=== PATIENT | female | born 1985 | race Caucasian/White ===

== ENCOUNTER 2021-10-16 07:44 | Inpatient (IN) ==
[2021-10-16] MEDS ORDERED: Magnesium Hydroxide LIQ 30 ML UDC PO PRN (12:57)
[2021-10-16] MEDS ORDERED: Senna TAB 8.6 mg TAB PO PRN (12:57)
[2021-10-17] MEDS: Enoxaparin 40 MG/0.4 ML SYR SUBCUT SCH (05:47)
[2021-10-17 07:16] LABS: ABS Eosinophils 0.1 10^3/ul (0-0.6); ABS Lymphocytes 1.6 10^3/ul (1.0-4.8); ABS Monocytes 0.4 10^3/ul (0-0.8); ABS Neutrophils 3.7 10^3/ul (1.5-7.7); Eosinophil % 1.6 %; Hematocrit 30 % (35-47); Hemoglobin 10.3 g/dL (12.0-16.0); Lymphocyte % 26.9 %; Mean Corpuscular HGB Conc 34 g/dL (31-36); Mean Corpuscular Hemoglobin 31 pg (27-31); Mean Corpuscular Volume 90 fL (80-97); Mean Platelet Volume 10.7 fL (7.4-10.4); Platelet Count 357 10^3/uL (150-450); Red Blood Count 3.38 10^6 /uL (3.70-4.87); Red Cell Distribution Width 19 % (10-15); White Blood Count 5.8 10^3/uL (3.5-10.8)
[2021-10-17 07:32] LABS: Albumin 3.7 g/dL (3.2-5.2); Albumin/Globulin Ratio 0.8 (1-3); Calcium 9.7 mg/dL (8.6-10.3); Globulin 4.7 g/dL (2-4); Potassium 3.6 mmol/L (3.5-5.0); Total Bilirubin 0.6 mg/dL (0.2-1.0); Total Protein 8.4 g/dL (6.4-8.9)
[2021-10-17] MEDS: Vitamin THERAPEUTIC TAB PO SCH (08:05)
[2021-10-18] MEDS: Enoxaparin 40 MG/0.4 ML SYR SUBCUT SCH (05:49)
[2021-10-18] MEDS: Vitamin THERAPEUTIC TAB PO SCH ×2 (09:20→09:23)
[2021-10-18] MEDS: Lidocaine 4% GEL 10 GM TUBE TOPICAL SCH ×3 (11:57→20:27)
[2021-10-19] MEDS: Enoxaparin 40 MG/0.4 ML SYR SUBCUT SCH (04:12)
[2021-10-19] MEDS: Lidocaine 4% GEL 10 GM TUBE TOPICAL SCH ×3 (08:25→20:36)
[2021-10-19] MEDS: Vitamin THERAPEUTIC TAB PO SCH (08:29)
[2021-10-20] MEDS: Enoxaparin 40 MG/0.4 ML SYR SUBCUT SCH (05:36)
[2021-10-20] MEDS: Lidocaine 4% GEL 10 GM TUBE TOPICAL SCH (08:17)
[2021-10-20] MEDS: Vitamin THERAPEUTIC TAB PO SCH (09:28)
[2021-10-20] MEDS: Lidocaine 4% GEL 10 GM TUBE TOPICAL PRN ×2 (14:01→18:23)
[2021-10-21] MEDS: Enoxaparin 40 MG/0.4 ML SYR SUBCUT SCH (06:06)
[2021-10-21] MEDS: Lidocaine 4% GEL 10 GM TUBE TOPICAL PRN ×3 (07:07→21:34)
[2021-10-21] MEDS: Vitamin THERAPEUTIC TAB PO SCH ×2 (09:08→09:13)
[2021-10-22] MEDS: Enoxaparin 40 MG/0.4 ML SYR SUBCUT SCH (05:45)
[2021-10-22] MEDS: Lidocaine 4% GEL 10 GM TUBE TOPICAL PRN ×4 (07:36→20:57)
[2021-10-22] MEDS: MULTIVITAMIN PO SCH (11:03)
[2021-10-22] MEDS: [UNRECOGNIZED DRUG - OTHER] PO SCH (11:03)
[2021-10-23] MEDS: Lidocaine 4% GEL 10 GM TUBE TOPICAL PRN ×4 (02:32→18:02)
[2021-10-23] MEDS: Enoxaparin 40 MG/0.4 ML SYR SUBCUT SCH (05:26)
[2021-10-23] MEDS: [UNRECOGNIZED DRUG - OTHER] PO SCH (07:31)
[2021-10-23] MEDS: MULTIVITAMIN PO SCH (07:31)
[2021-10-23] MEDS: DULoxetine DR 30 mg CAP PO SCH (07:32)
[2021-10-24] MEDS: Enoxaparin 40 MG/0.4 ML SYR SUBCUT SCH (05:25)
[2021-10-24 06:20] LABS: ABS Basophils 0.1 10^3/ul (0-0.2); ABS Eosinophils 0.1 10^3/ul (0-0.6); ABS Lymphocytes 1.5 10^3/ul (1.0-4.8); ABS Monocytes 0.4 10^3/ul (0-0.8); ABS Neutrophils 3.1 10^3/ul (1.5-7.7); Eosinophil % 2.4 %; Hematocrit 30 % (35-47); Hemoglobin 10.2 g/dL (12.0-16.0); Lymphocyte % 28.4 %; Mean Corpuscular HGB Conc 33 g/dL (31-36); Mean Corpuscular Hemoglobin 31 pg (27-31); Mean Corpuscular Volume 91 fL (80-97); Mean Platelet Volume 9.8 fL (7.4-10.4); Platelet Count 305 10^3/uL (150-450); Red Blood Count 3.33 10^6 /uL (3.70-4.87); Red Cell Distribution Width 17 % (10-15); White Blood Count 5.2 10^3/uL (3.5-10.8)
[2021-10-24 06:50] LABS: Albumin 3.5 g/dL (3.2-5.2); Albumin/Globulin Ratio 0.9 (1-3); Calcium 9.4 mg/dL (8.6-10.3); Globulin 3.8 g/dL (2-4); Potassium 3.6 mmol/L (3.5-5.0); Total Bilirubin 0.5 mg/dL (0.2-1.0); Total Protein 7.3 g/dL (6.4-8.9); eGFR CKD-EPI 122.2 (>60)
[2021-10-24] MEDS: DULoxetine DR 30 mg CAP PO SCH (07:57)
[2021-10-24] MEDS: [UNRECOGNIZED DRUG - OTHER] PO SCH (08:00)
[2021-10-24] MEDS: MULTIVITAMIN PO SCH (08:00)
[2021-10-24] MEDS: Lidocaine 4% GEL 10 GM TUBE TOPICAL PRN ×2 (09:15→16:34)
[2021-10-25] MEDS: Enoxaparin 40 MG/0.4 ML SYR SUBCUT SCH (05:14)
[2021-10-25] MEDS: Lidocaine 4% GEL 10 GM TUBE TOPICAL PRN (05:14)
[2021-10-25] MEDS: [UNRECOGNIZED DRUG - OTHER] PO SCH (08:29)
[2021-10-25] MEDS: MULTIVITAMIN PO SCH (08:29)
[2021-10-25] MEDS: DULoxetine DR 30 mg CAP PO SCH (08:31)
[2021-10-26] MEDS: Lidocaine 4% GEL 10 GM TUBE TOPICAL PRN (02:49)
[2021-10-26] MEDS: Enoxaparin 40 MG/0.4 ML SYR SUBCUT SCH (05:38)
[2021-10-26] MEDS: [UNRECOGNIZED DRUG - OTHER] PO SCH (08:18)
[2021-10-26] MEDS: MULTIVITAMIN PO SCH (08:18)
[2021-10-26] MEDS: DULoxetine DR 30 mg CAP PO SCH (08:19)
[2021-10-27] MEDS: Lidocaine 4% GEL 10 GM TUBE TOPICAL PRN ×2 (02:16→12:48)
[2021-10-27] MEDS: Enoxaparin 40 MG/0.4 ML SYR SUBCUT SCH (05:58)
[2021-10-27] MEDS: MULTIVITAMIN PO SCH (09:24)
[2021-10-27] MEDS: [UNRECOGNIZED DRUG - OTHER] PO SCH (09:24)
[2021-10-27] MEDS: DULoxetine DR 30 mg CAP PO SCH (09:24)
[2021-10-28] MEDS: Lidocaine 4% GEL 10 GM TUBE TOPICAL PRN (03:36)
[2021-10-28] MEDS: Enoxaparin 40 MG/0.4 ML SYR SUBCUT SCH (06:11)
[2021-10-28] MEDS: DULoxetine DR 30 mg CAP PO SCH (09:50)
[2021-10-28] MEDS: MULTIVITAMIN PO SCH (09:53)
[2021-10-28] MEDS: [UNRECOGNIZED DRUG - OTHER] PO SCH (09:53)
[2021-10-29] MEDS: Lidocaine 4% GEL 10 GM TUBE TOPICAL PRN ×2 (00:03→07:47)
[2021-10-29] MEDS: Enoxaparin 40 MG/0.4 ML SYR SUBCUT SCH (04:24)
[2021-10-29] MEDS: DULoxetine DR 30 mg CAP PO SCH (07:48)
[2021-10-29] MEDS: [UNRECOGNIZED DRUG - OTHER] PO SCH (08:56)
[2021-10-29] MEDS: MULTIVITAMIN PO SCH (08:56)
[2021-10-30] MEDS: Lidocaine 4% GEL 10 GM TUBE TOPICAL PRN (03:10)
[2021-10-30] MEDS: Enoxaparin 40 MG/0.4 ML SYR SUBCUT SCH (05:55)
[2021-10-30] MEDS: MULTIVITAMIN PO SCH (08:20)
[2021-10-30] MEDS: [UNRECOGNIZED DRUG - OTHER] PO SCH (08:20)
[2021-10-30] MEDS: DULoxetine DR 30 mg CAP PO SCH (08:20)
[2021-10-30] MEDS: Dextran 70/Hypromellose Tears Eye Drops 15 ml BTL (for Artificials Tears) LEFT EYE PRN ×2 (18:45→21:24)
[2021-10-31] MEDS: Lidocaine 4% GEL 10 GM TUBE TOPICAL PRN ×2 (03:17→07:46)
[2021-10-31] MEDS: Enoxaparin 40 MG/0.4 ML SYR SUBCUT SCH (05:43)
[2021-10-31 06:44] LABS: ABS Basophils 0.1 10^3/ul (0-0.2); ABS Eosinophils 0.1 10^3/ul (0-0.6); ABS Lymphocytes 1.8 10^3/ul (1.0-4.8); ABS Monocytes 0.4 10^3/ul (0-0.8); ABS Neutrophils 3.3 10^3/ul (1.5-7.7); Eosinophil % 1.1 %; Hematocrit 34 % (35-47); Hemoglobin 11.6 g/dL (12.0-16.0); Lymphocyte % 32.4 %; Mean Corpuscular HGB Conc 34 g/dL (31-36); Mean Corpuscular Hemoglobin 31 pg (27-31); Mean Corpuscular Volume 91 fL (80-97); Mean Platelet Volume 9.9 fL (7.4-10.4); Nucleated Red Blood Cells % 0.1; Platelet Count 356 10^3/uL (150-450); Red Blood Count 3.75 10^6 /uL (3.70-4.87); Red Cell Distribution Width 16 % (10-15); White Blood Count 5.7 10^3/uL (3.5-10.8)
[2021-10-31 07:13] LABS: Albumin 4.1 g/dL (3.2-5.2); Potassium 3.8 mmol/L (3.5-5.0); Total Bilirubin 0.4 mg/dL (0.2-1.0); Total Protein 8.1 g/dL (6.4-8.9); eGFR CKD-EPI 120.2 (>60)
[2021-10-31] MEDS: MULTIVITAMIN PO SCH (07:46)
[2021-10-31] MEDS: DULoxetine DR 30 mg CAP PO SCH (07:46)
[2021-10-31] MEDS: [UNRECOGNIZED DRUG - OTHER] PO SCH (07:46)
[2021-11-01] MEDS: Lidocaine 4% GEL 10 GM TUBE TOPICAL PRN ×2 (03:38→17:49)
[2021-11-01] MEDS: Enoxaparin 40 MG/0.4 ML SYR SUBCUT SCH (05:59)
[2021-11-01] MEDS: DULoxetine DR 30 mg CAP PO SCH (09:52)
[2021-11-01] MEDS: MULTIVITAMIN PO SCH (09:58)
[2021-11-01] MEDS: [UNRECOGNIZED DRUG - OTHER] PO SCH (09:58)
[2021-11-02] MEDS: Enoxaparin 40 MG/0.4 ML SYR SUBCUT SCH (05:29)
[2021-11-02] MEDS: [UNRECOGNIZED DRUG - OTHER] PO SCH (08:59)
[2021-11-02] MEDS: MULTIVITAMIN PO SCH (08:59)
[2021-11-02] MEDS: DULoxetine DR 30 mg CAP PO SCH (09:02)
[2021-11-02 19:33] LABS: Urine Appearance Turbid; Urine Bilirubin Negative (Negative); Urine Blood Negative (Negative); Urine Color Yellow; Urine Glucose Negative (Negative); Urine Ketones Negative (Negative); Urine Nitrite Positive (Negative); Urine Protein Negative (Negative); Urine Specific Gravity 1.012 (1.002-1.030); Urine Urobilinogen Negative (Negative)
[2021-11-02 19:56] LABS: Urine Bacteria 1+ (Absent); Urine Red Blood Cell Absent (Absent); Urine Squamous Epithelial Cell Present (Absent); Urine White Blood Cell 3+(>20/hpf) (Absent)
[2021-11-03] MEDS: Enoxaparin 40 MG/0.4 ML SYR SUBCUT SCH (06:11)
[2021-11-03] MEDS: Lidocaine 4% GEL 10 GM TUBE TOPICAL PRN ×2 (08:42→12:37)
[2021-11-03] MEDS: [UNRECOGNIZED DRUG - OTHER] PO SCH (08:42)
[2021-11-03] MEDS: DULoxetine DR 30 mg CAP PO SCH (08:42)
[2021-11-03] MEDS: MULTIVITAMIN PO SCH (08:42)
[2021-11-03] MEDS: Sulfamethox/Trimethoprim DS TAB 800/160 mg PO SCH (21:03)
[2021-11-04] MEDS: Lidocaine 4% GEL 10 GM TUBE TOPICAL PRN ×4 (02:43→22:48)
[2021-11-04] MEDS: Enoxaparin 40 MG/0.4 ML SYR SUBCUT SCH (05:45)
[2021-11-04] MEDS: DULoxetine DR 30 mg CAP PO SCH (08:59)
[2021-11-04] MEDS: MULTIVITAMIN PO SCH (09:00)
[2021-11-04] MEDS: [UNRECOGNIZED DRUG - OTHER] PO SCH (09:00)
[2021-11-04] MEDS: Sulfamethox/Trimethoprim DS TAB 800/160 mg PO SCH ×2 (09:00→21:35)
[2021-11-04] MEDS: Dextran 70/Hypromellose Tears Eye Drops 15 ml BTL (for Artificials Tears) LEFT EYE PRN (10:49)
[2021-11-05 05:57] VITALS: BP 101/71
[2021-11-05] MEDS: Enoxaparin 40 MG/0.4 ML SYR SUBCUT SCH (06:21)
[2021-11-05] MEDS: Lidocaine 4% GEL 10 GM TUBE TOPICAL PRN (09:46)
[2021-11-05] MEDS: MULTIVITAMIN PO SCH (09:50)
[2021-11-05] MEDS: [UNRECOGNIZED DRUG - OTHER] PO SCH (09:50)
[2021-11-05] MEDS: DULoxetine DR 30 mg CAP PO SCH (09:51)
[2021-11-05] MEDS: Sulfamethox/Trimethoprim DS TAB 800/160 mg PO SCH (09:51)
== END 2021-11-05 12:30 | disposition home or self-care (01) | DRG 48 ==
LOC: PMRU 12:12
PROVIDERS: ADMIT Physical Medicine & Rehabilitation; ATTEND Physical Medicine & Rehabilitation